=== PATIENT | female | born 1955 | race Caucasian/White ===

== ENCOUNTER 2018-03-08 08:44 | Day surgery (SDC) | payer OTHER ==
[2018-03-08] MEDS ORDERED: PROPOFOL 20 ML ×2 (10:26→11:32)
== END 2018-03-08 15:46 | disposition home or self-care (01) ==
LOC: GIL 08:44
DX: Z12.11 Encounter for screening for malignant neoplasm of colon (principal); D12.3 Benign neoplasm of transverse colon; K64.8 Other hemorrhoids; E11.9 Type 2 diabetes mellitus without complications; E78.5 Hyperlipidemia, unspecified
CPT/HCPCS: 45380; 88305

== ENCOUNTER → 2018-08-12 | Day surgery (SDC) | payer OTHER ==
[~2018-08-12] MED LIST: FENTAnyl 50 MCG/ML VIAL; LIDOCAINE 4% SOLUTION 50 ML BTL; MIDAZOLAM 1 MG/ML 2 ML INJ
== END | disposition home or self-care (01) ==
LOC: GIL 12:21
DX: K29.30 Chronic superficial gastritis without bleeding (principal); I10 Essential (primary) hypertension
CPT/HCPCS: 43239; 88305; 88312